=== PATIENT | male | born 1940 | race Caucasian/White ===

== ENCOUNTER 2017-07-03 09:44 | Inpatient (IN) | payer OTHER, BC ==
[2017-05-11 11:45] VITALS: BMI 26.0
--- NOTE | 2017-05-11 12:19 | PAT Medication Instructions ---
Service Date May 11, 2017. Current Home Medication List Aspirin (Aspirin Adult Low Dose), 81 MG PO QAM Atenolol (Atenolol), 50 MG PO QAM Clopidogrel Bisulfate (Plavix), 75 MG PO QAM Gefyjyknyyt-Ffacpjpjerg-Fm Cho (Glucosamine Chondroitin &), 1 TAB PO QAM Hctz/Lisinopril (Lisinopril/Hctz 20/25 Mg), 1 TAB PO QAM Multivitamin (Multivitamin), 1 TAB PO 4XWK Omeprazole (Omeprazole), 20 MG PO BID Simvastatin (Simvastatin), 40 MG PO QAM Medication Instructions For Your Scheduled Surgery - Hold the following medications 2 weeks prior to surgery: Uqbruyimqre-Iwdjinceqna-En Cho (Glucosamine Chondroitin &), 1 TAB PO QAM - Hold the following medications 7 days prior to surgery per surgeon and Cardiology recommendations: Clopidogrel Bisulfate (Plavix), 75 MG PO QAM - Hold the following medications the morning of surgery: Hctz/Lisinopril (Lisinopril/Hctz 20/25 Mg), 1 TAB PO QAM Multivitamin (Multivitamin), 1 TAB PO 4XWK - Take the following medications the morning of surgery with a sip of water OTHERWISE NOTHING EAT OR DRINK AFTER MIDNIGHT: Aspirin (Aspirin Adult Low Dose), 81 MG PO QAM Atenolol (Atenolol), 50 MG PO QAM Omeprazole (Omeprazole), 20 MG PO BID Simvastatin (Simvastatin), 40 MG PO QAM - Take the following medications as scheduled the night before surgery: Omeprazole (Omeprazole), 20 MG PO BID If you have any questions please call us at [phone] or [phone] or [phone]
--- NOTE | 2017-05-11 12:55 | DIAGNOSTIC IMAGING REPORT ---
CHEST PREADMISSION(PA/LAT) HISTORY: 76 years-old Male preadmission exam. COMPARISON: None available TECHNIQUE: PA and lateral views of the chest FINDINGS: Cardiac silhouette is upper limits of normal. There is no pneumothorax or pleural effusion. There is minimal inferior segment lingula atelectasis or scarring and a subsegmental distribution. Hazy opacity of the medial right lung base with obscuration of the right heart border is noted which may reflect prominent epicardial fat pad. The bones appear grossly intact. The abdominal structures are within normal limits. IMPRESSION: 1. Hazy opacity of the medial right lung base with obscuration of the right heart border suggests prominent epicardial fat pad or medial segment right middle lobe airspace disease. 2. Minimal inferior segment lingula atelectasis or scarring. The above report was generated using voice recognition software. It may contain grammatical, syntax or spelling errors. Electronically signed by: Connor De Jesus M.D. 05/11/2017 12:54 PM Dictated Date/Time: 05/11/2017 12:52 PM
[2017-05-11 13:32] LABS: BASO % 0.2 %; BASO ABS # 0.01 K/uL (0-0.2); COMPLETE YES; EOS % 1.5 %; IG% 0.7 %; LYMPH % 20.8 %; LYMPH ABS # 0.95 K/uL (1.2-3.4); MEAN CELL VOLUME 94.4 fL (80-100); MEAN CORPUSCULAR HEMOGLOBIN 32.8 pg (25-34); MEAN CORPUSCULAR HGB CONC 34.8 g/dl (32-36); MEAN PLATELET VOLUME 10.1 fL (7.4-10.4); MONO % 13.8 %; PLATELET COUNT 133 K/uL (130-400); RED BLOOD COUNT 4.45 M/uL (4.7-6.1); WHITE BLOOD COUNT 4.56 K/uL (4.8-10.8)
[2017-05-11 13:39] LABS: BUN/CREATININE RATIO 16.3 (10-20); CALCIUM 9.2 mg/dl (8.5-10.1); CREATININE 0.79 mg/dl (0.60-1.40); POTASSIUM 4.4 mmol/L (3.5-5.1)
[2017-05-11 13:42] LABS: PROTHROMBIN TIME (PATIENT) 11.1 SECONDS (9.0-12.0)
--- NOTE | 2017-06-27 13:45 | HISTORY & PHYSICAL EXAMINATION ---
DATE OF ADMISSION: 07/03/2017 CHIEF COMPLAINT: Left knee pain. HISTORY OF PRESENT ILLNESS: A 76-year-old gentleman who I have been following for several years for advanced left knee pain and DJD. We have treated him conservatively with injections and medicines over time. This has become less successful. He has developed increased pain and discomfort. Pain is mostly on the medial side of his knee. It is increased with weightbearing. He is having more and more difficulty doing recreational activities like playing golf and would like to have his left knee replaced. PAST MEDICAL HISTORY: Past medical history significant for, 1. Coronary artery disease, status post cardiac stent placement back in 2012, on Plavix. 2. Gastroesophageal reflux disease. 3. Hypertension. 4. Mitral regurgitation. 5. Hiatal hernia. PAST SURGICAL HISTORY: Include, 1. Multiple hernia surgery. 2. Hand surgery. 3. Angioplasty in 2012. ALLERGIES: None. CURRENT MEDICINES: 1. Atenolol 50 mg once a day. 2. Aspirin 81 mg. 3. Plavix 75 mg. 4. Glucosamine. 5. Lisinopril/hydrochlorothiazide 20/25 once a day. 6. Omeprazole 20 mg. 7. Simvastatin 40 mg daily. SOCIAL HISTORY: A 76-year-old male. He is . He is from [facility]. He does not smoke. FAMILY HISTORY: Noncontributory. REVIEW OF SYSTEMS: Negative for diabetes. He denies any current chest pain or shortness of breath. He is on Plavix as well as a baby aspirin. No history of DVT or PE. PHYSICAL EXAMINATION: GENERAL: Reveals a pleasant, middle-aged male. He looks to be in good health. HEENT: Benign. NECK: Supple. No lymphadenopathy. LUNGS: Clear to auscultation. HEART: Has a regular rate and rhythm. ABDOMEN: Soft, nontender, and nondistended. EXTREMITIES: Grossly neurovascularly intact except as follows: Examination of the left knee reveals the patient ambulates independently. The patient got a varus alignment to his knee with a bit of varus thrust when he weight bears. He has got a small knee effusion. He has got bony hypertrophy medially. Tender over the medial joint line. Range of motion is 5-120. No instability. X-RAYS: X-rays of the left knee were reviewed. It shows advanced left knee DJD. He has got complete loss of his medial joint space. He has subchondral sclerosis. He has got a little bit of tibial femoral subluxation. With stress testing, his lateral compartment does collapse as well. ASSESSMENT: A 76-year-old male with advanced left knee degenerative joint disease. He has got tricompartment disease. He has failed conservative treatment. He would like to proceed with knee replacement. PLAN: We are going to take him to the operating room and do a left total knee replacement. The risks and benefits of this procedure were explained to the patient, including but not limited to DVT, PE, , infection, neurological injury, vascular injury, bleeding problems, pain, limited range of motion, stiffness, failure to relieve his symptoms, incomplete relief of symptoms, need for further surgery in the future, fracture, leg length inequality, nerve palsy, etc. The patient understands and desires to proceed. Informed consent was obtained. The patient did have his cardiac stent placed in 2012. He was seen by his claim professional and cleared for surgery. He will stop the Plavix 1 week preop. We will continue on the baby aspirin. We did talk to him about taking his atenolol on the morning of surgery. He is hoping to be discharged to home using home health as long as he progresses appropriately in the hospital. TIERNEY
[~2017-07-03] VITALS: Ht 175.3 cm; Wt 82.1 kg
[~2017-07-03 09:44] MED LIST: ACETAMINOPHEN 500 MG TAB PO SCH; ASPI-589 PO; ATROPINE SULFATE 0.1 MG/ML 5ML SYR IV PRN; BUPIVACAINE 0.25% 30 ML VIAL ONE; BUPIVACAINE 0.5 % 5 MG/1 ML PF 10ML VIAL ONE; BUPIVACAINE LIPOSOME 266 MG, BUPIVACAINE/EPINEPHRINE INJ 50 ML, SODIUM CHLORIDE 0.9% PF... INFIL SCH; CEFAZOLIN 2000 MG/60 ML D5W 60 ML IV SCH; CLOP1TAB5 PO; EpHEDrine SULFATE INJ 50 MG/ML AMP IV PRN; FAMOTIDINE 20 MG TAB PO SCH; GABAPENTIN 300 MG CAP PO SCH; GLUCTAB32 PO; LACTATED RINGER'S 1000ML 1,000 ML IV SCH; LACTATED RINGER'S 1000ML 500 ML IV ONE; LACTATED RINGER'S 1000ML IV SCH; LSN/2025 PO; METOCLOPRAMIDE HCL 10 MG TAB PO SCH; MULT-506 PO; OMEP20TA PO; ONDANSETRON INJ 2 MG/ML 2 ML VIAL IV PRN; SCOPOLAMINE 1.5 MG TDSY TD SCH; TNR50 PO; TRANEXAMIC ACID INJ 1,000 MG in SODIUM CHLORIDE 0.9% 100ML 100 ML IV SCH; ZCR40 PO
[2017-07-03 10:10] VITALS: BP 154/69; TEMP 36.4; O2SAT 95; Ht 175.3 cm; Wt 82.1 kg
[2017-07-03] MEDS ORDERED: MIDAZOLAM HCL 1 MG/ML 2ML VIAL ONE ×2 (12:05→13:06)
--- NOTE | 2017-07-03 12:32 | History & Physical Bridge Note ---
H&P Re-Evaluation Bridge Note: I have examined the patient, reviewed the History & Physical and in the interval since the performance of the History & Physical I have noted the following changes of clinical significance: No changes noted
[2017-07-03] MEDS ORDERED: SODIUM CHLORIDE 0.9% PF 50 ML VIAL ONE (12:46)
[2017-07-03] MEDS ORDERED: BUPIVACAINE/EPINEPHRINE 0.25% 1:200,000 30 ML VIAL ONE (12:46)
[2017-07-03] MEDS ORDERED: BUPIVACAINE LIPOSOME 1/3% 266 MG/20 ML VIAL INFIL ONE (12:46)
[2017-07-03] MEDS ORDERED: BACITRACIN 50000 UNIT VIAL ONE (12:46)
--- NOTE | 2017-07-03 14:36 | [facility] Post Operative Brief Note ---
Immediate Operative Summary Operative Date Jul 03, 2017. Pre-Operative Diagnosis Left Knee Advanced Degenerative Joint Disease Post-Operative Diagnosis Left Knee Advanced Degenerative Joint Disease Procedure(s) Performed Left Total Knee Arthroplasty Surgeon Dr. Ag Gifted Program Teacher Surgeon(s) INOCENCIA Suazo Estimated Blood Loss 50 ml Findings Left Knee DJD Fluids (cc crystalloids) 1700 cc Specimens A. Left Knee Bone and Tissue Drains None Anesthesia Spinal Complication(s) None Disposition Recovery Room / PACU
[2017-07-03] MEDS ORDERED: MAGNESIUM HYDROXIDE SUSP 30 ML UDC PO PRN (14:45)
[2017-07-03] MEDS ORDERED: ONDANSETRON INJ 2 MG/ML 2 ML VIAL IV PRN (14:45)
[2017-07-03] MEDS ORDERED: ALUMINUM/MAGNESIUM/SIMETH (MAALOX MAX) 30 ML UDC PO PRN (14:45)
[2017-07-03] MEDS ORDERED: ZOLPIDEM TARTRATE 5 MG TAB PO PRN (14:45)
[2017-07-03] MEDS ORDERED: METOCLOPRAMIDE HCL INJ 5 MG/ML 2 ML VIAL IV PRN (14:45)
[2017-07-03] MEDS ORDERED: HYDROmorphone INJ 0.5 MG/0.5 ML SYR IV PRN (14:45)
[2017-07-03] MEDS ORDERED: TAMSULOSIN HCL 0.4 MG CAP PO PRN (14:45)
[2017-07-03] MEDS ORDERED: BISACODYL 10 MG SUPP PR PRN (14:45)
[2017-07-03] MEDS ORDERED: SILVER SULFADIAZINE 1% CR 50 GM JAR EXT PRN (14:45)
--- NOTE | 2017-07-03 14:55 | Anesthesiology Progress Note ---
Anesthesia Post Op Note Date & Time Jul 03, 2017 at 14:55 Vital Signs Pain Intensity: 0 Vital Signs Past 12 Hours Date Time Temp Pulse Resp B/P (MAP) Pulse Ox O2 Delivery O2 Flow Rate FiO2 07/03/17 14:50 58 14 139/61 97 Oxymask 5 07/03/17 14:40 36.2 62 14 130/62 96 Oxymask 5 07/03/17 10:10 36.4 18 154/69 95 Room Air Notes Mental Status: alert / awake / arousable, participated in evaluation Pt Amnestic to Procedure: Yes Nausea / Vomiting: adequately controlled Pain: adequately controlled Airway Patency, RR, SpO2: stable & adequate BP & HR: stable & adequate Hydration State: stable & adequate Neuraxial Anesthesia: was administered, sensory block is resolving Anesthetic Complications: no major complications apparent
--- NOTE | 2017-07-03 15:14 | DIAGNOSTIC IMAGING REPORT ---
LEFT KNEE 1 OR 2 VIEWS ROUTINE CLINICAL HISTORY: Postoperative evaluation. COMPARISON: Left knee radiographs May 11, 2017. FINDINGS: Alignment of the total left knee arthroplasty is anatomic. There is no fracture or unexpected radiopaque foreign body. There are skin kell. IMPRESSION: Expected findings following total left knee arthroplasty. Electronically signed by: Alessio Chappell M.D. 07/03/2017 3:13 PM Dictated Date/Time: 07/03/2017 3:13 PM
[2017-07-03 15:35] VITALS: BP 116/55; PULSE 54; TEMP 36.5; O2SAT 92
--- NOTE | 2017-07-03 15:54 | OPERATIVE REPORT ---
DATE OF OPERATION: 07/03/2017 SURGEON: Jenaro Ag MD NURSE PRACTITIONER HOSPITALIST: INOCENCIA Braun PREOPERATIVE DIAGNOSIS: Left knee degenerative joint disease. POSTOPERATIVE DIAGNOSIS: Same. PROCEDURE PERFORMED: Left cemented posterior stabilized total knee arthroplasty. COMPLICATIONS: None. ESTIMATED BLOOD LOSS: 50 mL. FLUID REPLACEMENT: 1700 mL crystalloid fluid replacement. TOURNIQUET TIME: 58 minutes at 300 mmHg. ANESTHESIA: Spinal with adductor canal block. DRAINS: None. SPECIMENS: Left knee sent for pathology. OPERATIVE INDICATIONS: The patient is a 76-year-old very active gentleman who has had a long history of left knee pain and discomfort. I have been treating him over the past 5 plus years with injections and medicines. This has become less successful over time. X-rays revealed advanced DJD. The patient elects to proceed with the operative treatment. OPERATIVE FINDINGS: Operative findings revealed advanced grade 4 [id number] atherosclerotic disease of the medial femoral condyle and medial tibial plateau. His patellofemoral joint was fairly well preserved. He did have some spotty grade 4 changes in the lateral compartment as well. He had a varus deformity to his knee with a moderate knee joint effusion. OPERATIVE IMPLANTS: Operative implants consisted of: 1. A Biomet Vanguard size 65 left posterior stabilized femoral component. 2. A Biomet size 75 tibial tray. 3. A 10 mm posterior stabilized polyethylene insert. 4. A 31 x 8 all poly patella. OPERATIVE PROCEDURE: The patient taken to the operating room, identified and placed on the operating table in supine position. All contact areas were appropriately padded. IV antibiotics were provided by anesthesia team. A spinal anesthetic and adductor canal block had been provided in the holding area. Wilcox catheter was placed in sterile fashion. Left thigh tourniquet was then placed and left lower extremity was then prepped and draped in the usual sterile fashion. The left leg was elevated and exsanguinated with Esmarch and tourniquet was placed at 300 mmHg. An anterior approach of the left knee was then performed through a longitudinal incision centered over the patella. Sharp dissection was carried out through the subcutaneous tissues down to the level of the extensor mechanism. A medial parapatellar arthrotomy incision was made. Some subperiosteal dissection was carried out medially. The fat pad was resected from beneath the patellar tendon. The lateral patellofemoral ligament was released. The patella was everted and knee was flexed. The osteophytes were taken off the distal femur. The ACL and PCL were released from the distal femur and the tibia subluxated anteriorly. The external tibial alignment jig was then placed in the anterior face of the tibia and adjusted 16 mm medially. Proximal tibial cut was made to essentially be flushed with the most deficient aspect of the medial tibial plateau. Tibia was sized to a size 75. Some osteophytes were taken off medial and posteromedially. Attention was then drawn to the femur. The distal femur was entered with a sharp drill bit. Intramedullary canal was suctioned. A left 6 degree valgus cutting guide was placed. Distal femoral cutting block was pinned in place. Distal femoral cut was made to take an additional 3 mm of bone off the distal femur. The femur was then sized to a size 65. We did downsize this slightly. The AP cutting block was pinned parallel to the epicondylar axis, which was 5 degrees of external rotation. The anterior cut, anterior chamfer, posterior cut, and posterior chamfer cuts were made. Box cutting guide was placed and adjusted slightly lateral and the box cut was made. The knee was flexed. The remnants of the medial and lateral meniscus were excised. The osteophytes were taken off the posterior aspect of the femur. A trial femoral component was placed. Tibial tray was pinned in maximum external rotation and drill and stem punch were used to create defect in proximal tibia for the tibial tray. The knee was then trialed and the 10 mm insert fit most appropriately. Attention was then drawn to the patella. The patella was cleaned of all soft tissues. Patella thickness measured 23 mm, cut down to 14. It was sized to a size 31 patella. Lateral osteophyte was removed. Patella button was placed. Knee was taken through range of motion and the patella tracked nicely with no thumbs test. Attention was then drawn toward placement of permanent components. All trial components were removed. A bone plug was placed in the distal femur to limit blood loss. A double batch of Palacos G cement was mixed. A left size 65 posterior stabilized femoral component, size 75 tibial tray, a 10 mm posterior stabilized polyethylene insert, and a 31 x 8 all poly patella then cemented in place. Knee was brought out into full extension until cement hardened. A final cement check was then performed. Pericapsular tissues were injected with a total of 100 mL of 20 mL of Exparel, 30 mL of normal saline, and 50 mL of 0.25% Marcaine with epinephrine. The patient did receive 1 gram of tranexamic acid. The tourniquet was then let down for final tourniquet time of 58 minutes. Hemostasis was assured with use of electrocautery. The wound was once again irrigated. The extensor mechanism was closed with a combination of #1 PDS suture and #1 Vicryl suture in a ikjevv-gc-rvqla fashion. The extensor mechanism was checked and found to be intact. The subcutaneous tissues were then closed with 2-0 Dexon suture in a buried interrupted fashion. Skin was closed skin kell. Leg was then cleaned and dried and a sterile dressing of Xeroform, 4 x 4, sterile cast padding and Cristhian bandage were applied. The patient then transferred to the recovery room in stable condition. The patient tolerated the procedure well with no complications. All needle and sponge counts were correct at the end of the operation. I attest to the content of the Intraoperative Record and any orders documented therein. Any exception s are noted below.
[2017-07-03] MEDS: CHECK SCOPOLAMINE PATCH PLACEMENT SCH ×2 (16:00→23:29)
[2017-07-03 16:05] VITALS: BP 132/74; PULSE 57; O2SAT 96
[2017-07-03 16:34] VITALS: BP 126/74; PULSE 62; O2SAT 97
[2017-07-03] MEDS: D5W AND 1/2NSS + 20MEQ KCL 1,000 ML IV SCH (17:10)
[2017-07-03] MEDS: KETOROLAC TROMETHAMINE 15 MG/ML VIAL IV. SCH ×2 (17:16→22:27)
[2017-07-03] MEDS: FERROUS GLUCONATE 324 MG TAB PO SCH (18:16)
[2017-07-03 18:26] VITALS: BP 138/72; PULSE 54; TEMP 36.4; O2SAT 96
[2017-07-03] MEDS: PANTOprazole SOD 40 MG TAB PO SCH (20:39)
[2017-07-03] MEDS: ASPIRIN 81 MG ECTAB PO SCH (20:39)
[2017-07-03] MEDS: SENNA 8.6 MG TAB PO SCH (20:39)
[2017-07-03] MEDS: DOCUSATE SODIUM 100 MG CAP PO SCH (20:39)
[2017-07-03] MEDS: CEFAZOLIN IV 2,000 MG in DEXTROSE 5% 50ML 50 ML IV SCH (20:40)
[2017-07-03] MEDS ORDERED: PANTOprazole SOD 40 MG TAB PO SCH (21:00)
[2017-07-03] MEDS: ACETAMINOPHEN 500 MG TAB PO SCH (22:27)
[2017-07-03 23:40] VITALS: BP 122/68; PULSE 49; TEMP 36.5; O2SAT 94
[2017-07-04] MEDS: D5W AND 1/2NSS + 20MEQ KCL 1,000 ML IV SCH ×2 (01:45→10:54)
[2017-07-04 03:52] VITALS: BP 112/64; PULSE 57; TEMP 36.7; O2SAT 94
[2017-07-04] MEDS: KETOROLAC TROMETHAMINE 15 MG/ML VIAL IV. SCH ×2 (04:07→10:55)
[2017-07-04] MEDS: ACETAMINOPHEN 500 MG TAB PO SCH ×3 (05:51→21:42)
[2017-07-04] MEDS: CEFAZOLIN IV 2,000 MG in DEXTROSE 5% 50ML 50 ML IV SCH (05:51)
[2017-07-04 07:21] VITALS: BP 115/63; PULSE 55; TEMP 36.7; O2SAT 95
[2017-07-04 07:29] LABS: HEMATOCRIT 34.2 % (42-52); MEAN CELL VOLUME 95.5 fL (80-100); MEAN CORPUSCULAR HEMOGLOBIN 33.5 pg (25-34); MEAN CORPUSCULAR HGB CONC 35.1 g/dl (32-36); MEAN PLATELET VOLUME 10.1 fL (7.4-10.4); PLATELET COUNT 107 K/uL (130-400); RED BLOOD COUNT 3.58 M/uL (4.7-6.1); WHITE BLOOD COUNT 6.69 K/uL (4.8-10.8)
[2017-07-04 07:55] LABS: BUN/CREATININE RATIO 17.5 (10-20); CALCIUM 8.1 mg/dl (8.5-10.1); CREATININE 0.73 mg/dl (0.60-1.40)
[2017-07-04] MEDS: CHECK SCOPOLAMINE PATCH PLACEMENT SCH ×3 (08:00→23:29)
[2017-07-04] MEDS ORDERED: MULTIVITAMIN TAB PO SCH (09:00)
[2017-07-04] MEDS ORDERED: PANTOprazole SOD 40 MG TAB PO SCH (09:00)
[2017-07-04 09:10] VITALS: BP 115/58; PULSE 54
[2017-07-04] MEDS: DOCUSATE SODIUM 100 MG CAP PO SCH ×2 (09:11→21:41)
[2017-07-04] MEDS: MULTIVITAMIN TAB PO SCH (09:11)
[2017-07-04] MEDS: PANTOprazole SOD 40 MG TAB PO SCH ×2 (09:11→21:41)
[2017-07-04] MEDS: SIMVASTATIN 40 MG TAB PO SCH (09:12)
[2017-07-04] MEDS: CLOPIDOGREL BISULFATE 75 MG TAB PO SCH (09:13)
[2017-07-04] MEDS: LISINOPRIL/HCTZ 20/25MG TAB PO SCH (09:13)
[2017-07-04] MEDS: ASPIRIN 81 MG ECTAB PO SCH ×2 (09:13→21:40)
[2017-07-04] MEDS: FERROUS GLUCONATE 324 MG TAB PO SCH ×3 (09:14→18:01)
[2017-07-04] MEDS: TRAMADOL HCL 50 MG TAB PO PRN ×3 (09:21→23:28)
--- NOTE | 2017-07-04 14:55 | PROGRESS NOTE ---
DATE: 07/04/2017 SUBJECTIVE: A 76-year-old gentleman postop from a left knee replacement. He is doing well. He says this is going much better than expected. He describes the pain as soreness. No chest pain or shortness of breath. Not feeling dizzy or lightheaded. OBJECTIVE: VITAL SIGNS: Temperature is 36.7. Vital signs stable. GENERAL: Physical examination reveals a healthy pleasant elderly male. He is sitting up in bed and talking to his . He looks comfortable. EXTREMITIES: Examination of the left leg reveals it to be well aligned. He can dorsiflex and plantarflex his foot appropriately. He is neurologically intact. LABORATORY DATA: Hemoglobin 12.0 and hematocrit 34.2. Electrolytes are stable. ASSESSMENT: A 76-year-old male postop day 1 from left knee replacement, doing well. His pain is controlled. He is neurologically intact. PLAN: 1. DVT prophylaxis including thigh-high TEDs and SCDs. We will put him back on his Plavix. He is also on baby aspirin. 2. PT/OT. Weightbear as tolerated. Left total knee protocol. 3. Pain control, doing well with current regimen. 4. Disposition: Plan to discharge to home with some home health once adequately recovered. TIERNEY
[2017-07-04 15:00] VITALS: BP 142/71; PULSE 62; TEMP 36.6; O2SAT 96
[2017-07-04] MEDS ORDERED: ASPEC81 PO (21:24)
[2017-07-04] MEDS ORDERED: ULT50X PO (21:24)
[2017-07-04] MEDS ORDERED: ACET-24 PO (21:24)
--- NOTE | 2017-07-04 21:27 | Discharge Instructions ---
Discharge Instructions Date of Service Jul 04, 2017. Admission Reason for Admission: Left Knee Degenerative Joint Disease Pager Discharge Discharge Diagnosis / Problem: Left Knee Replacement Discharge Goals Goal(s): Decrease discomfort, Improve function, Increase independence, Improve disease control, Therapeutic intervention Activity Recommendations Activity Limitations: per Instructions/Follow-up section Weightbearing Status: Left weightbearing . Instructions / Follow-Up Instructions / Follow-Up ACTIVITY RECOMMENDATIONS: Physical Therapy: * You will go to physical therapy three times each week for four to six weeks after your surgery in order to regain your knee range of motion and to retrain your knee to work properly. * It is just as important to make sure you are getting your knee perfectly straight as it is to regain your knee bend. * Taking a pain pill an hour before therapy can help you have a more productive and comfortable therapy session. Home Exercise: * You were shown a series of exercises (heel props, heel slides, etc.) in the hospital. Do these exercises three to four times each day including the exercises you were shown in physical therapy. Walking: * Get up and walk several times each day. For the first four weeks, try not to stand or walk for more than one hour at a time. If you do stand or walk for more than one hour, you will not hurt anything, but your knee and leg will likely swell. * As you feel comfortable, you may change from the walker or crutches to a cane and then to independent walking. MEDICATIONS: New Medicine: * You will likely be taking one or more of these medications: 1. Tramadol - A quick and shorter-acting pain medication. Take one to two tablets every four to six hours to lessen your pain. * The most common side effects of pain medicine and iron are nausea and constipation. If nausea or constipation is too much of a problem or if you have any questions about your new medicines or doses, call [facility] at . We will try to help you manage these issues. VERY IMPORTANT TO READ AND REVIEW" Pain: * The immediate post-operative period after knee replacement surgery is often quite painful. * You are given a prescription for pain medicine. You should take it, as directed, when you need it, especially before physical therapy and before going to bed. Pain that interferes with sleep is very common and can last several months. * You will likely need pain medicine for the first four to six weeks. It will not stop all of the pain. The pain will lessen and as you feel better, you may change to milder pain medicine such as Tylenol. * The most common side effects of pain medicine are nausea and constipation, so don't take more than you need. SPECIAL CARE INSTRUCTIONS: TEDs/Elastic Stockings: * The white elastic stockings help limit swelling and prevent blood clots from forming in your legs. The more you wear them, the more they work. * Wear them for six weeks after knee replacement surgery and four weeks after partial knee replacement. Prevention of Infection: * Take antibiotics one hour before any dental cleaning, dental work, urological procedure, gastrointestinal procedure or any invasive surgery in order to prevent your new joint from getting infected. * You may get the antibiotics from the doctor performing the procedure or you may call our office at before and we will call in a prescription to the pharmacy of your choice. Things to Watch For: * Drainage from the incision site that occurs more than one week after your surgery. * Severely increased knee/leg pain or swelling. * Increased redness at the incision site. * Fever above 102 degrees Fahrenheit. * Unusual chest pain or shortness of breath. * Unusual pain or burning with urination. Call [facility] at with any of the above problems or if you have any questions about your medicines or recovery. FOLLOW UP VISIT: Make an appointment to see your doctor for approximately two weeks after surgery for a progress check and staple removal by calling the office at . Current Hospital Diet Patient's current hospital diet: Regular Diet Discharge Diet Recommended Diet: Regular Diet Procedures Procedures Performed: Left Total Knee Arthroplasty Pending Studies Studies pending at discharge: no Medical Emergencies . Who to Call and When: Medical Emergencies: If at any time you feel your situation is an emergency, please call [phone] immediately. . Non-Emergent Contact Non-Emergency issues call your: Surgeon . "Provider Documentation" section prepared by Jenaro Ag. . VTE Core Measure Inpt VTE Proph given/why not?: Other Anticoagulation, T.E.D. Stockings, SCD's
[2017-07-04] MEDS: SENNA 8.6 MG TAB PO SCH (21:41)
[2017-07-04 23:15] VITALS: BP 165/75; PULSE 73; TEMP 36.5; O2SAT 93
[2017-07-05] MEDS: ACETAMINOPHEN 500 MG TAB PO SCH (05:30)
[2017-07-05] MEDS: TRAMADOL HCL 50 MG TAB PO PRN ×2 (05:31→11:21)
[2017-07-05 06:40] VITALS: BP 153/74; PULSE 71; TEMP 36.6; O2SAT 95
[2017-07-05 07:31] VITALS: BP 159/78; PULSE 67; TEMP 36.5; O2SAT 93
[2017-07-05] MEDS: CHECK SCOPOLAMINE PATCH PLACEMENT SCH (07:52)
--- NOTE | 2017-07-05 07:52 | PROGRESS NOTE ---
DATE: 07/05/2017 SUBJECTIVE: A 76-year-old gentleman postop day 2 from left knee replacement. Knee is a bit more sore this morning. No chest pain or shortness of breath. Not feeling dizzy or lightheaded. OBJECTIVE: VITAL SIGNS: Temperature 36.5. Vital signs stable. PHYSICAL EXAMINATION: GENERAL: Shows pleasant elderly male. He is sitting up in bed, looks reasonably comfortable. EXTREMITIES: Examination of the left leg reveals the leg to be well aligned. Some moderate swelling. No significant drainage on his dressing. He is neurologically intact. ASSESSMENT: A 76-year-old gentleman postop day 2 from a left knee replacement, doing pretty well. A little bit more sore today. PLAN: 1. DVT prophylaxis including thigh-high TEDs, SCDs, and back on his Plavix and his baby aspirin. 2. PT/OT. Weightbearing as tolerated. Left total knee protocol. 3. Pain control. Doing reasonably well with current pain regimen. We may ask to adjust his meds a little bit. 4. Disposition: Plan to discharge to home with some home health once adequately recovered.
[2017-07-05] MEDS: PANTOprazole SOD 40 MG TAB PO SCH (07:53)
[2017-07-05] MEDS: LISINOPRIL/HCTZ 20/25MG TAB PO SCH (07:53)
[2017-07-05] MEDS: CLOPIDOGREL BISULFATE 75 MG TAB PO SCH (07:54)
[2017-07-05] MEDS: SIMVASTATIN 40 MG TAB PO SCH (07:54)
[2017-07-05] MEDS: FERROUS GLUCONATE 324 MG TAB PO SCH (07:54)
[2017-07-05] MEDS: MULTIVITAMIN TAB PO SCH (07:55)
[2017-07-05 08:22] VITALS: BP 159/78; PULSE 67; TEMP 36.5; O2SAT 93
[2017-07-05] MEDS: DOCUSATE SODIUM 100 MG CAP PO SCH (08:52)
[2017-07-05] MEDS: ASPIRIN 81 MG ECTAB PO SCH (08:52)
--- NOTE | 2017-07-13 18:11 | DISCHARGE SUMMARY ---
ADMITTING PHYSICIAN AND SURGEON: Dr. Ag. ADMITTING DIAGNOSIS: Left knee degenerative joint disease. SURGERY PERFORMED: Left total knee arthroplasty. SECONDARY DIAGNOSES: Coronary artery disease, gastroesophageal reflux disease, hypertension, mitral regurgitation, hiatal hernia. CONSULTS: None obtained. HISTORY AND PHYSICAL EXAMINATION: Well documented in the patient's chart. HOSPITAL COURSE: The patient was admitted on 07/03/2017 and underwent total knee arthroplasty, tolerated the procedure well. There were no complications. Transferred to the PACU postoperatively and later to the orthopedic floor for further care. He was given Ancef for antibiotic prophylaxis, YELENA stockings, SCDs and aspirin and Plavix for DVT prophylaxis. Hemoglobin, hematocrit and vital signs were monitored during his hospital stay and remained stable without requiring any blood transfusions. There were no complications. By postoperative day 2, he was tolerating a general diet, pain was controlled with oral pain medicine. He was participating in physical therapy and had no signs or symptoms of deep vein thrombosis. On postop day 2, he was discharged home, given printed discharge instructions including new prescriptions for extra strength Tylenol, tramadol. Continue his home medicines include aspirin and Plavix, continue physical therapy, weightbearing as tolerated, YELENA stockings. Follow up in 10-12 days or sooner if there are any problems or concerns.
== END 2017-07-05 11:32 | disposition home or self-care (01) | DRG 470 ==
LOC: C.ACU 09:44 → C.3E 12:30 → ENRESERV 15:18
PROVIDERS: ADMIT Orthopaedic Surgery Sports Medicine; ATTEND Orthopaedic Surgery Sports Medicine
PROC: 0SRD0J9 Replacement of Left Knee Joint with Synthetic Substitute, Cemented, Open Approach (ICD-10-PCS; principal; 2017-07-03 12:30)
DX: M17.12 Unilateral primary osteoarthritis, left knee (principal); I25.10 Atherosclerotic heart disease of native coronary artery without angina pectoris; I10 Essential (primary) hypertension; I34.0 Nonrheumatic mitral (valve) insufficiency; K21.9 Gastro-esophageal reflux disease without esophagitis; Z95.5 Presence of coronary angioplasty implant and graft; Z79.02 Long term (current) use of antithrombotics/antiplatelets; Z79.82 Long term (current) use of aspirin; Z79.899 Other long term (current) drug therapy; Z87.19 Personal history of other diseases of the digestive system

== ENCOUNTER 2017-07-08 11:39 | Emergency (ER) | payer OTHER, BC ==
[~2017-07-08] VITALS: Ht 175.3 cm; Wt 83.9 kg
[~2017-07-08 11:39] MED LIST changes: +ACET-24 PO; -ACETAMINOPHEN 500 MG TAB PO SCH; -ATROPINE SULFATE 0.1 MG/ML 5ML SYR IV PRN; -BUPIVACAINE 0.25% 30 ML VIAL ONE; -BUPIVACAINE 0.5 % 5 MG/1 ML PF 10ML VIAL ONE; -BUPIVACAINE LIPOSOME 266 MG, BUPIVACAINE/EPINEPHRINE INJ 50 ML, SODIUM CHLORIDE 0.9% PF... INFIL SCH; -CEFAZOLIN 2000 MG/60 ML D5W 60 ML IV SCH; -EpHEDrine SULFATE INJ 50 MG/ML AMP IV PRN; -FAMOTIDINE 20 MG TAB PO SCH; -GABAPENTIN 300 MG CAP PO SCH; -LACTATED RINGER'S 1000ML 1,000 ML IV SCH; -LACTATED RINGER'S 1000ML 500 ML IV ONE; -LACTATED RINGER'S 1000ML IV SCH; -METOCLOPRAMIDE HCL 10 MG TAB PO SCH; -ONDANSETRON INJ 2 MG/ML 2 ML VIAL IV PRN; -SCOPOLAMINE 1.5 MG TDSY TD SCH; -TRANEXAMIC ACID INJ 1,000 MG in SODIUM CHLORIDE 0.9% 100ML 100 ML IV SCH; +ULT50X PO
[2017-07-08 11:44] VITALS: TEMP 36.4; Ht 175.3 cm; Wt 83.9 kg
--- NOTE | 2017-07-08 11:55 | EMERGENCY ROOM VISIT NOTE ---
History Report prepared by Keya: Kaity Moore Under the Supervision of: Dr. Pavel Barnard D.O. First contact with patient: 11:46 Chief Complaint: REFERRED BY DOCTOR Stated Complaint: GROIN AREA IS RED, HOT AND SWELLING-SENT BY ANDRE History of Present Illness The patient is a 76 year old male who presents to the Emergency Room with complaints of left lower extremity pain and swelling. The patient is 5 days status post left knee replacement with Dr. Ag. He states that his pain is unchanged in his left knee but he's noticed increased redness swelling and pain that goes into his left groin. He called the on-call orthopedic physician to come to the emergency department for further evaluation. The patient is on pain medication and home. He hasn't noticed a fever. He denies having any nausea vomiting or recent trauma. He has had some serosanguineous drainage from the knee but denies having any purulence or dehiscence. Has had some constipation but at this time denies having any abdominal pain chest pain or shortness of breath. The patient does not have a history of DVT or venous thromboembolic disease but otherwise. He currently rates his pain as an 8/10 in severity. Source of History: patient Onset: five days ago Position: knee (left) Symptom Intensity: 8/10 Quality: other (radiating) Timing: constant Associated Symptoms: No fevers, No chest pain, No SOB, No nausea, No vomiting, No abdominal pain Note: The patient complains of constipation and drainage from his knee. The patient denies any recent trauma. Review of Systems See HPI for pertinent positives & negatives. A total of 10 systems reviewed and were otherwise negative. Past Medical & Surgical Medical Problems: (1) CAD (coronary artery disease) (2) DVT (deep venous thrombosis) (3) High cholesterol (4) HTN (hypertension) (5) Left Knee DJD Surgical Problems: (1) H/O hernia repair (2) History of cataract surgery (3) History of heart artery stent (4) History of left knee replacement (5) S/P correction of deviated nasal septum Family History No pertinent family history Social History Smoking Status: Former Smoker Smokeless Tobacco Use: No Alcohol Use: occasionally Drug Use: none Marital Status: Housing Status: lives with significant other Current/Historical Medications Scheduled Acetaminophen (Sb Non-Aspirin Extra Stre), 1,000 MG PO Q8H Aspirin (Aspirin Adult Low Dose), 81 MG PO BID Atenolol (Atenolol), 50 MG PO QAM Cephalexin Monohydrate (Keflex), 500 MG PO QID Clopidogrel Bisulfate (Plavix), 75 MG PO QAM Bmteakkrhgb-Ywlijfuqmiu-Eb Cho (Glucosamine Chondroitin &), 1 TAB PO QAM Hctz/Lisinopril (Lisinopril/Hctz 20/25 Mg), 1 TAB PO QAM Multivitamin (Multivitamin), 1 TAB PO 4XWK Omeprazole (Omeprazole), 20 MG PO BID Polyethylene Glycol 3350 (Miralax), 17 GM PO DAILY Simvastatin (Simvastatin), 40 MG PO QAM Scheduled PRN Tramadol HCl (Tramadol HCl), 50-100 MG PO Q6H PRN for Pain Allergies Coded Allergies: NO KNOWN DRUG ALLERGIES (Verified Allergy, Unknown, , 07/03/17) Oxycodone (Verified Adverse Reaction, Mild, G.I. UPSET, 07/08/17) Physical Exam Vital Signs Date Time Temp Pulse Resp B/P (MAP) Pulse Ox O2 Delivery O2 Flow Rate FiO2 07/08/17 16:14 73 18 138/69 95 Room Air 07/08/17 15:00 71 20 147/70 96 Room Air 07/08/17 13:35 67 07/08/17 13:04 68 18 139/65 98 Room Air 07/08/17 11:44 36.4 67 18 122/65 100 Room Air Physical Exam GENERAL: Patient is awake alert in no acute distress patient is resting comfortably and showing no signs of anxiety EYES: The conjunctivae are clear. The pupils are round and reactive. EARS, NOSE, MOUTH AND THROAT: The nose is without any evidence of any deformity. Mucous membranes are moist tongue is midline NECK: The neck is nontender and supple. RESPIRATORY: Normal respiratory effort is noted there is no evidence of wheezing rhonchi or rales CARDIOVASCULAR: Regular rate and rhythm noted there no murmurs rubs or gallops normal S1 normal S2 GASTROINTESTINAL: The abdomen is soft. Bowel sounds are present in all quadrants. Abdomen is nontender BACK: No midline tenderness or or step-off noted range of motion in flexion extension as well as rotation no signs of muscle spasm noted MUSCULOSKELETAL/EXTREMITIES: There is no evidence of gross deformity full range of motion is noted in the hips and shoulders SKIN: There is a postoperative site noted in the left knee. Skin kell are in place. There is significant erythema and warmth but there is no dehiscence or drainage. There is also swelling and tenderness tracks up the inner left thigh. It is indurated. It is warm. Skin is warm and dry. NEUROLOGIC: Patient is awake alert and oriented x3. Medical Decision & Procedures ER Provider Diagnostic Interpretation: Radiology results as stated below per my review and radiologist interpretation: L KNEE 1 OR 2 VIEWS ROUTINE CLINICAL HISTORY: left knee pain pain COMPARISON: 07/03/2017 DISCUSSION: Anatomic alignment status post total left knee replacement. Good contact between prosthetic and underlying bone. Moderate pretibial soft tissue edema IMPRESSION: 1. Operative changes consistent with a total left knee replacement. 2. Mild soft tissue edema The above report was generated using voice recognition software. It may contain grammatical, syntax or spelling errors. Electronically signed by: Ajay Villarreal M.D. 07/08/2017 12:52 PM Dictated Date/Time: 07/08/2017 12:51 PM L VENOUS DOPP LOWER EXT UNILAT CLINICAL HISTORY: swelling pain. Edema. TECHNIQUE: Venous Doppler COMPARISON STUDY: None FINDINGS: Negative study IMPRESSION: Negative study The above report was generated using voice recognition software. It may contain grammatical, syntax or spelling errors. Electronically signed by: Ajay Villarreal M.D. 07/08/2017 1:29 PM Dictated Date/Time: 07/08/2017 1:29 PM L LOWER EXTREMITY WITHOUT CT DOSE: 424.52 mGy.cm HISTORY: Pain. Edema. LLE swelling TECHNIQUE: Multiaxial CT images of the left thigh and femur were performed and reformatted in the sagittal and coronal plane without the use of contrast. A dose lowering technique was utilized adhering to the principles of ALARA. COMPARISON: None. FINDINGS: Findings of a total knee replacement. Considerable soft tissue cellulitis throughout the bulk of the length of the thigh. Very small thin areas of fluid accumulation in the medial upper left thigh as well as lateral thigh are present within the subcutaneous fat. Nevertheless, a well-defined drainable abscess or collection is not appreciated. Major muscle bundles appear unremarkable. There is a very small joint effusion. IMPRESSION: 1. Generalized soft tissue subcutaneous edema/ cellulitis. 2. Several very small thin layers of fluid are present within the subcutaneous fat, although there is no evidence for drainable abscess or collection. 3. Postoperative changes consistent with a left knee arthroplasty. The above report was generated using voice recognition software. It may contain grammatical, syntax or spelling errors. Electronically signed by: Ajay Villarreal M.D. 07/08/2017 2:35 PM Dictated Date/Time: 07/08/2017 2:29 PM Laboratory Results 07/08/17 12:30 Red Blood Count 2.95, Mean Corpuscular Volume 93.6, Mean Corpuscular Hemoglobin 33.6, Mean Corpuscular Hemoglobin Concent 35.9, Mean Platelet Volume 9.7, Neutrophils (%) (Auto) 65.3, Lymphocytes (%) (Auto) 14.0, Monocytes (%) (Auto) 18.1, Eosinophils (%) (Auto) 1.7, Basophils (%) (Auto) 0.2, Neutrophils # (Auto ) 3.54, Lymphocytes # (Auto) 0.76, Monocytes # (Auto) 0.98, Eosinophils # (Auto ) 0.09, Basophils # (Auto) 0.01 07/08/17 12:30 Test 07/08/17 12:30 07/08/17 12:39 07/08/17 12:57 White Blood Count 5.42 K/uL (4.8-10.8) Red Blood Count 2.95 M/uL (4.7-6.1) Hemoglobin 9.9 g/dL (14.0-18.0) Hematocrit 27.6 % (42-52) Mean Corpuscular Volume 93.6 fL (80-100) Mean Corpuscular Hemoglobin 33.6 pg (25-34) Mean Corpuscular Hemoglobin Concent 35.9 g/dl (32-36) Platelet Count 176 K/uL (130-400) Mean Platelet Volume 9.7 fL (7.4-10.4) Neutrophils (%) (Auto) 65.3 % Lymphocytes (%) (Auto) 14.0 % Monocytes (%) (Auto) 18.1 % Eosinophils (%) (Auto) 1.7 % Basophils (%) (Auto) 0.2 % Neutrophils # (Auto) 3.54 K/uL (1.4-6.5) Lymphocytes # (Auto) 0.76 K/uL (1.2-3.4) Monocytes # (Auto) 0.98 K/uL (0.11-0.59) Eosinophils # (Auto) 0.09 K/uL (0-0.5) Basophils # (Auto) 0.01 K/uL (0-0.2) RDW Standard Deviation 41.3 fL (36.4-46.3) RDW Coefficient of Variation 12.1 % (11.5-14.5) Immature Granulocyte % (Auto) 0.7 % Immature Granulocyte # (Auto) 0.04 K/uL (0.00-0.02) Erythrocyte Sedimentation Rate 24 mm/hr (0-14) Prothrombin Time 10.5 SECONDS (9.0-12.0) Prothromb Time International Ratio 1.0 (0.9-1.1) Activated Partial Thromboplast Time 28.5 SECONDS (21.0-31.0) Partial Thromboplastin Ratio 1.1 Anion Gap 6.0 mmol/L (3-11) Est Creatinine Clear Calc Drug Dose 86.1 ml/min Estimated GFR () 104.4 Estimated GFR (Non- 90.1 BUN/Creatinine Ratio 17.7 (10-20) Calcium Level 8.4 mg/dl (8.5-10.1) Total Bilirubin 1.1 mg/dl (0.2-1) Direct Bilirubin 0.4 mg/dl (0-0.2) Aspartate Amino Transf (AST/SGOT) 23 U/L (15-37) Alanine Aminotransferase (ALT/SGPT) 25 U/L (12-78) Alkaline Phosphatase 67 U/L (45-117) C-Reactive Protein 16.00 mg/dl (0-0.29) Total Protein 6.3 gm/dl (6.4-8.2) Albumin 2.9 gm/dl (3.4-5.0) Bedside Lactic Acid Venous 1.10 mmol/L (0.90-1.70) Urine Color YELLOW Urine Appearance CLEAR (CLEAR) Urine pH 6.5 (4.5-7.5) Urine Specific [place] 1.009 (1.000-1.030) Urine Protein NEG (NEG) Urine Glucose (UA) NEG (NEG) Urine Ketones NEG (NEG) Urine Occult Blood NEG (NEG) Urine Nitrite NEG (NEG) Urine Bilirubin NEG (NEG) Urine Urobilinogen NEG (NEG) Urine Leukocyte Esterase NEG (NEG) Laboratory results per my review. Medications Administered Medications (Trade) Dose Ordered Sig/Abelino Route Start Time Stop Time Status Last Admin Dose Admin Potassium Chloride (Kcl 10 Meq / Wtr) 10 meq NOW STAT IV 07/08/17 13:24 07/08/17 13:25 DC 07/08/17 13:37 10 MEQ Potassium Chloride (Klor-Con M10) 10 meq NOW STAT PO 07/08/17 13:24 07/08/17 13:25 DC 07/08/17 13:38 10 MEQ Ceftriaxone Sodium (Rocephin Inj) 1 gm NOW STAT IV 07/08/17 14:59 07/08/17 15:01 DC 07/08/17 14:59 1 GM ED Course 1146: The patient was evaluated in room C11B. A complete history and physical examination were performed. 1324: Ordered Potassium Chloride 10 meq PO, Potassium Chloride 10 meq IV. 1333: I reevaluated the patient and he was resting comfortably. 1357: I discussed the patient's case with Dr. Mccormack. He will come see the patient and asked he be put in for a CT. 1459: Ordered Rocephin Inj 1 gm IV. 1606: Upon reevaluation, the patient is resting comfortably. I discussed the results and treatment plan with him. He verbalized agreement of the treatment plan. The patient was discharged home. Medical Decision Prior records reviewed and summarized as above. Triage Nursing notes reviewed. The patient's history was concerning for swelling and redness of the skin. Differential diagnosis: Etiologies such as cellulitis, abscess, MRSA infection, DVT, necrotizing fasciitis, dermatitis, drug eruption, as well as others were entertained.. The patient is a 76-year-old male who presented to the emergency department for an evaluation of left leg pain. The patient had recent knee surgery with a knee replacement. The patient's skin appears erythematous and warm. At this time I feel some of his condition could be related to being on Plavix and his recent surgery. There appears to be significant swelling in the tissue which could be consistent with a hematoma in the subcutaneous tissues. I discussed the patient' s laboratory radiographic studies with him. His potassium was replaced. I also discussed his case with the covering orthopedic physician. He has agreed to evaluate the patient in the emergency apartment for further management and disposition. After discussing the case he requested that we order a CAT scan of the leg. This appeared to show significant infiltration of the soft tissues but appears to be more consistent with hematoma but no drainable abscess. Since cellulitis could still be on the differential the patient was started on antibiotics in the emergency department. He was reevaluated multiple times. He was encouraged to follow-up with his primary orthopedic physician as soon as possible. He was also encouraged to continue all medications as prescribed. He is also encouraged to return to the emergency Department immediately if symptoms change worsen or the need arises. Medication Reconcilliation Current Medication List: was personally reviewed by me Blood Pressure Screening Patient's blood pressure: Elevated blood pressure Blood pressure disposition: Elevated BP felt to be situational Consults Time Called: [id number] Consulting Physician: Dr. Mccormack Returned Call: [phone] I discussed the patient's case with Dr. Mccormack. He will come see the patient and asked he be put in for a CT. Impression Primary Impression: Pain of left lower extremity Additional Impressions: Postoperative pain Postoperative hematoma Hypokalemia Scribe Attestation The scribe's documentation has been prepared under my direction and personally reviewed by me in its entirety. I confirm that the note above accurately reflects all work, treatment, procedures, and medical decision making performed by me. Departure Information Dispostion Home / Self-Care Prescriptions Cephalexin Monohydrate (KEFLEX) 500 Mg Cap 500 MG PO QID, #40 CAP Prov: Pavel Barnard, DO 07/08/17 Referrals Karen Irene,P.A. (PCP) Forms HOME CARE DOCUMENTATION FORM, IMPORTANT VISIT INFORMATION, WORK / SCHOOL INSTRUCTIONS Patient Instructions [facility] Additional Instructions Continue all medications as prescribed. Follow-up with Dr. Ag as scheduled. Return to the emergency department immediately if symptoms change worsen or if the need arises. Problem Qualifiers
[2017-07-08] MEDS ORDERED: POLY335019 PO (12:21)
[2017-07-08 12:47] LABS: BASO % 0.2 %; BASO ABS # 0.01 K/uL (0-0.2); COMPLETE YES; EOS % 1.7 %; HEMATOCRIT 27.6 % (42-52); IG% 0.7 %; LYMPH ABS # 0.76 K/uL (1.2-3.4); MEAN CELL VOLUME 93.6 fL (80-100); MEAN CORPUSCULAR HEMOGLOBIN 33.6 pg (25-34); MEAN CORPUSCULAR HGB CONC 35.9 g/dl (32-36); MEAN PLATELET VOLUME 9.7 fL (7.4-10.4); MONO % 18.1 %; NEUT % 65.3 %; PLATELET COUNT 176 K/uL (130-400); RED BLOOD COUNT 2.95 M/uL (4.7-6.1); WHITE BLOOD COUNT 5.42 K/uL (4.8-10.8)
--- NOTE | 2017-07-08 12:53 | DIAGNOSTIC IMAGING REPORT ---
L KNEE 1 OR 2 VIEWS ROUTINE CLINICAL HISTORY: left knee pain pain COMPARISON: 07/03/2017 DISCUSSION: Anatomic alignment status post total left knee replacement. Good contact between prosthetic and underlying bone. Moderate pretibial soft tissue edema IMPRESSION: 1. Operative changes consistent with a total left knee replacement. 2. Mild soft tissue edema The above report was generated using voice recognition software. It may contain grammatical, syntax or spelling errors. Electronically signed by: Ajay Villarreal M.D. 07/08/2017 12:52 PM Dictated Date/Time: 07/08/2017 12:51 PM
[2017-07-08 12:58] LABS: PARTIAL THROMBOPLASTIN RATIO 1.1; PROTHROMBIN TIME (PATIENT) 10.5 SECONDS (9.0-12.0)
[2017-07-08 13:07] LABS: BUN/CREATININE RATIO 17.7 (10-20); CALCIUM 8.4 mg/dl (8.5-10.1); CREATININE 0.73 mg/dl (0.60-1.40); POTASSIUM 2.9 mmol/L (3.5-5.1)
[2017-07-08 13:08] LABS: URINE APPEARANCE CLEAR (CLEAR); URINE BILIRUBIN NEG (NEG); URINE COLOR YELLOW; URINE NITRITE NEG (NEG); URINE PH 6.5 (4.5-7.5); URINE SPECIFIC GRAVITY 1.009 (1.000-1.030); UROBILINOGEN NEG (NEG)
[2017-07-08 13:15] LABS: MANUAL MICROSCOPIC REQUIRED? NO; REVIEW REQ? NO
[2017-07-08] MEDS ORDERED: POTASSIUM CHLORIDE 10 MEQ / 100ML WTR IV STA (13:24)
[2017-07-08] MEDS ORDERED: POTASSIUM CHLORIDE 10 MEQ TABCR PO STA (13:24)
--- NOTE | 2017-07-08 13:30 | DIAGNOSTIC IMAGING REPORT ---
L VENOUS DOPP LOWER EXT UNILAT CLINICAL HISTORY: swelling pain. Edema. TECHNIQUE: Venous Doppler COMPARISON STUDY: None FINDINGS: Negative study IMPRESSION: Negative study The above report was generated using voice recognition software. It may contain grammatical, syntax or spelling errors. Electronically signed by: Ajay Villarreal M.D. 07/08/2017 1:29 PM Dictated Date/Time: 07/08/2017 1:29 PM
--- NOTE | 2017-07-08 14:36 | DIAGNOSTIC IMAGING REPORT ---
L LOWER EXTREMITY WITHOUT CT DOSE: 424.52 mGy.cm HISTORY: Pain. Edema. LLE swelling TECHNIQUE: Multiaxial CT images of the left thigh and femur were performed and reformatted in the sagittal and coronal plane without the use of contrast. A dose lowering technique was utilized adhering to the principles of ALARA. COMPARISON: None. FINDINGS: Findings of a total knee replacement. Considerable soft tissue cellulitis throughout the bulk of the length of the thigh. Very small thin areas of fluid accumulation in the medial upper left thigh as well as lateral thigh are present within the subcutaneous fat. Nevertheless, a well-defined drainable abscess or collection is not appreciated. Major muscle bundles appear unremarkable. There is a very small joint effusion. IMPRESSION: 1. Generalized soft tissue subcutaneous edema/ cellulitis. 2. Several very small thin layers of fluid are present within the subcutaneous fat, although there is no evidence for drainable abscess or collection. 3. Postoperative changes consistent with a left knee arthroplasty. The above report was generated using voice recognition software. It may contain grammatical, syntax or spelling errors. Electronically signed by: Ajay Villarreal M.D. 07/08/2017 2:35 PM Dictated Date/Time: 07/08/2017 2:29 PM
[2017-07-08] MEDS ORDERED: CEFTRIAXONE SOD INJ 1 GM ADDVIAL IV STA (14:59)
--- NOTE | 2017-07-08 15:12 | Orthopedic Consultation ---
Orthopedic Consultation Date of Consultation: Jul 08, 2017. Attending Physician: Reason for Consultation: Left groin redness History of Present Illness 76-year-old male status post left total knee arthroplasty by Dr. Ag on Sunday of this week. He is on Plavix for a stent that was placed in 2002. His electrical contacts adjuster Dr. Verito archuleta in [place] told him he needs to be on Plavix for life. He stopped his Plavix 7 days before surgery and then restarted at the day after surgery as he was instructed. He started noticing some redness in his groin yesterday that progressed into today. His called and I instructed them to come in to the emergency room. On presentation the emergency room the patient's afebrile temperature 36.4. A Doppler ultrasound was done which ruled out a DVT. We got a CAT scan that showed no drainable fluid collections. Labs were drawn including a UA which was negative. His CRP was elevated at 16 and ESR was elevated at 24 but his white count was negative. He is not having any pain in the groin. No subjective fevers or chills. He is taking only one tramadol a day for pain. This pain is only at the site of his surgery. Denies numbness or tingling. Past Medical/Surgical History Significant for coronary artery disease status post stent placement on Plavix for life. Family History No pertinent family history Social History Smoking Status: Former Smoker Smokeless Tobacco Use: No Drug Use: none Marital Status: Housing Status: lives with significant other Allergies Coded Allergies: NO KNOWN DRUG ALLERGIES (Verified Allergy, Unknown, , 07/03/17) Oxycodone (Verified Adverse Reaction, Mild, G.I. UPSET, 07/08/17) Home Medications Scheduled Acetaminophen (Sb Non-Aspirin Extra Stre), 1,000 MG PO Q8H Aspirin (Aspirin Adult Low Dose), 81 MG PO BID Atenolol (Atenolol), 50 MG PO QAM Clopidogrel Bisulfate (Plavix), 75 MG PO QAM Eyicrldwlxx-Xhxbuhypazz-Kg Cho (Glucosamine Chondroitin &), 1 TAB PO QAM Hctz/Lisinopril (Lisinopril/Hctz 20/25 Mg), 1 TAB PO QAM Multivitamin (Multivitamin), 1 TAB PO 4XWK Omeprazole (Omeprazole), 20 MG PO BID Polyethylene Glycol 3350 (Miralax), 17 GM PO DAILY Simvastatin (Simvastatin), 40 MG PO QAM Scheduled PRN Tramadol HCl (Tramadol HCl), 50-100 MG PO Q6H PRN for Pain Physical Exam Date Time Temp Pulse Resp B/P (MAP) Pulse Ox O2 Delivery O2 Flow Rate FiO2 07/08/17 13:35 67 07/08/17 13:04 68 18 139/65 98 Room Air 07/08/17 11:44 36.4 67 18 122/65 100 Room Air General Appearance: no apparent distress Head: normocephalic, atraumatic Neck: supple Respiratory/Chest: no respiratory distress Cardiovascular: normal peripheral pulses Extremities/Musculoskelatal: + inflammation (examination of the left lower extremity reveals his midline total knee incision to be healing well. There is scant drainage on the AVD pad which is serous in nature. He has some blanchable erythema on his medial thigh extending up into his groin. There is some petechiae near his groin which are likely secondary to the tourniquet.), + swelling Neurologic/Psych: alert, normal mood/affect, oriented x 3 Laboratory Results Last 24 Hours Test 07/08/17 12:30 07/08/17 12:39 07/08/17 12:57 White Blood Count 5.42 K/uL Red Blood Count 2.95 M/uL Hemoglobin 9.9 g/dL Hematocrit 27.6 % Mean Corpuscular Volume 93.6 fL Mean Corpuscular Hemoglobin 33.6 pg Mean Corpuscular Hemoglobin Concent 35.9 g/dl Platelet Count 176 K/uL Mean Platelet Volume 9.7 fL Neutrophils (%) (Auto) 65.3 % Lymphocytes (%) (Auto) 14.0 % Monocytes (%) (Auto) 18.1 % Eosinophils (%) (Auto) 1.7 % Basophils (%) (Auto) 0.2 % Neutrophils # (Auto) 3.54 K/uL Lymphocytes # (Auto) 0.76 K/uL Monocytes # (Auto) 0.98 K/uL Eosinophils # (Auto) 0.09 K/uL Basophils # (Auto) 0.01 K/uL RDW Standard Deviation 41.3 fL RDW Coefficient of Variation 12.1 % Immature Granulocyte % (Auto) 0.7 % Immature Granulocyte # (Auto) 0.04 K/uL Erythrocyte Sedimentation Rate 24 mm/hr Prothrombin Time 10.5 SECONDS Prothromb Time International Ratio 1.0 Activated Partial Thromboplast Time 28.5 SECONDS Partial Thromboplastin Ratio 1.1 Sodium Level 135 mmol/L Potassium Level 2.9 mmol/L Chloride Level 97 mmol/L Carbon Dioxide Level 32 mmol/L Anion Gap 6.0 mmol/L Blood Urea Nitrogen 13 mg/dl Creatinine 0.73 mg/dl Est Creatinine Clear Calc Drug Dose 86.1 ml/min Estimated GFR () 104.4 Estimated GFR (Non- 90.1 BUN/Creatinine Ratio 17.7 Random Glucose 136 mg/dl Calcium Level 8.4 mg/dl Total Bilirubin 1.1 mg/dl Direct Bilirubin 0.4 mg/dl Aspartate Amino Transf (AST/SGOT) 23 U/L Alanine Aminotransferase (ALT/SGPT) 25 U/L Alkaline Phosphatase 67 U/L C-Reactive Protein 16.00 mg/dl Total Protein 6.3 gm/dl Albumin 2.9 gm/dl Bedside Lactic Acid Venous 1.10 mmol/L Urine Color YELLOW Urine Appearance CLEAR Urine pH 6.5 Urine Specific [place] 1.009 Urine Protein NEG Urine Glucose (UA) NEG Urine Ketones NEG Urine Occult Blood NEG Urine Nitrite NEG Urine Bilirubin NEG Urine Urobilinogen NEG Urine Leukocyte Esterase NEG Assessment & Plan Assessment and plan: 74-year-old male with mild drainage from his wound likely secondary to Plavix. No evidence of infection. His ESR and CRP are likely elevated due to postsurgical change. Groin redness is likely secondary to tourniquet trauma. However cellulitis is not completely ruled out. Therefore we will put him on Keflex 500 mg 4 times a day. He is also getting a dose of Rocephin here IV in the emergency room. We put a new dressing on his wound. He 'll contact follow-up with Dr. Ag's office this week. Additional Copies To Jenaro Ag M.D.
[2017-07-08] MEDS ORDERED: CEPH500C2 PO (15:17)
[2017-07-08 16:14] VITALS: BP 138/69; PULSE 73; O2SAT 95
== END 2017-07-08 16:23 | disposition home or self-care (01) ==
LOC: C.EDB 11:40 → C.EDC 16:23
DX: M96.840 Postprocedural hematoma of a musculoskeletal structure following a musculoskeletal system procedure (principal); E87.6 Hypokalemia; Z86.718 Personal history of other venous thrombosis and embolism; I25.10 Atherosclerotic heart disease of native coronary artery without angina pectoris; E78.00 Pure hypercholesterolemia, unspecified; I10 Essential (primary) hypertension; Z98.49 Cataract extraction status, unspecified eye; Z95.5 Presence of coronary angioplasty implant and graft; Z96.652 Presence of left artificial knee joint; Z87.891 Personal history of nicotine dependence; Z79.82 Long term (current) use of aspirin; Z79.899 Other long term (current) drug therapy; Z79.01 Long term (current) use of anticoagulants

== ENCOUNTER 2022-12-06 06:01 | Observation (INO) ==
--- NOTE | 2022-11-21 11:05 | PAT Medication Instructions ---
Medication Instructions Date of Service November 21, 2022 Home Medications aspirin 81 mg capsule 81 mg PO QAM atenolol 50 mg tablet 50 mg PO QAM lisinopril 20 mg-hydrochlorothiazide 25 mg tablet 1 tab PO BID multivitamin 1 tab PO 4XWK omeprazole 20 mg capsule,delayed release 20 mg PO BID simvastatin 40 mg tablet 40 mg PO QAM DO NOT take the morning of surgery lisinopril 20 mg-hydrochlorothiazide 25 mg tablet 1 tab PO BID multivitamin 1 tab PO 4XWK Take morning of surgery With a small sip of water, OTHERWISE NOTHING TO EAT OR DRINK AFTER MIDNIGHT: aspirin 81 mg capsule 81 mg PO QAM (continue as normal unless told otherwise by surgeon) atenolol 50 mg tablet 50 mg PO QAM omeprazole 20 mg capsule,delayed release 20 mg PO BID simvastatin 40 mg tablet 40 mg PO QAM Take evening before surgery lisinopril 20 mg-hydrochlorothiazide 25 mg tablet 1 tab PO BID omeprazole 20 mg capsule,delayed release 20 mg PO BID Other Notes If you have any questions please call us at [phone] or [phone] or [phone] or [phone]
--- NOTE | 2022-11-23 15:06 | Anesthesiology Consultation ---
Date of Service November 23, 2022 Assessment & Plan (1) Encounter for pre-operative examination: Chart Review Chart Review: Acceptable Risk for Surgery and Patient seen in Pre Admission Testing Pt is NOT an Outpatient Joint Candidate - Check BSG AM DOS Per PAT appt on 11/23/22, patient denies any recent travel or large group activities. Pt is vaccinated for Covid. Will leave to surgeon's discretion if preop Covid testing needed. Educated on importance of using Covid precautions one week prior to surgery Pt seen by cardio 10/11/22= patient seen for follow-up evaluation for cardiovascular issues. Today patient feels well and offers no cardiac complaints. Patient is due for knee replacement in the near future. Able to ambulate long distances with no cardiac symptoms. Overall patient doing well from cardiovascular standpoint. From a preoperative risk standpoint he is at an elevated but acceptable risk. No unstable symptoms at this time and can easily achieve 4 metabolic equivalents or greater without any limitations from a cardiac standpoint. Thereforecardio feels that he may proceed at elevated but acceptable risk from a cardiovascular standpoint. Additionallywe will continue his aspirin throughout his perioperative course. Patient will follow-up in 1 year History Surgery Operation Date: 12/06/22 09:55 Proposed Procedures p Right Total Knee Arthroplasty - Jenaro Ag MD Height/Weight Height: 5 ft 8.5 in Weight: 79.5 kg Allergies Allergy/AdvReac Type Severity Reaction Status Date / Time No Known Drug Allergies Allergy Unknown Verified 11/20/22 08:51 oxycodone AdvReac Mild G.I. UPSET Verified 11/20/22 08:51 Medications Home Medications Medication Instructions Recorded Confirmed Last Taken aspirin 81 mg capsule 81 mg PO QAM 11/20/22 11/20/22 Unknown atenolol 50 mg tablet 50 mg PO QAM 11/20/22 11/20/22 Unknown lisinopril 20 1 tab PO BID 11/20/22 11/20/22 Unknown mg-hydrochlorothiazide 25 mg tablet multivitamin 1 tab PO 4XWK 11/20/22 11/20/22 Unknown omeprazole 20 mg capsule,delayed 20 mg PO BID 11/20/22 11/20/22 Unknown release simvastatin 40 mg tablet 40 mg PO QAM 11/20/22 11/20/22 Unknown Past Medical History Medical History Borderline diabetes Monitoring Diet controlled CAD (coronary artery disease) S/p LEE to LAD in 2002 DVT (deep venous thrombosis) Pt denies GERD (gastroesophageal reflux disease) Well controlled and stable High cholesterol HTN (hypertension) Hx of diverticulitis of colon Treated with abx- Jun 2022 Osteoarthritis Sleep apnea no machine Exercise / Class Metabolic Activity II 4-5 Yardwork/Stairs/Walk up hill (one flight of stairs - no chest pain or SOB) Past Family History Family History Other No family history of adverse response to anesthesia Past Surgical History Surgical History H/O hernia repair left (x1) & right (x4) inguinal hernia repairs History of cardiac cath x1 in 2002 at [facility] History of cataract surgery bilateral History of cholecystectomy History of colonoscopy History of esophagogastroduodenoscopy (EGD) History of heart artery stent x1 in 2002. History of left knee replacement S/P correction of deviated nasal septum Past Anesthesia History No Hx of Anesthesia Complications and No Family Hx of Anesthesia Complications History of PONV No Hx of PONV and No Hx of Motion Sickness Social History Smoking Status: Former smoker tobacco type: cigarettes Do You Dip or Chew Tobacco: No Smoking End Date: Hx Alcohol Use: Yes Alcohol type: wine alcohol intake frequency: a few times a week Hx Substance Use: No substance use type: does not use Review of Systems Patient denies chest pain, shortness of breath, dyspnea on exertion, cough, wheezing, palpitations. No hx of seizures, stroke, MT. No hx of blood clots or blood transfusions Physical Exam Vital Signs VITALS BP 118/72 P 58 TEMP 97.5 SP02 97% RESP 16 Constitutional no acute distress ENMT Mouth: no TMJ clicking Thyromental Distance: > or= 3.5 Finger Breadths (3.5) Mallampati Class: II Caps to front teeth Neck neck extension not limited Respiratory normal respiratory effort; no respiratory distress Auscultation: lungs clear to auscultation bilaterally; no wheezes Cardiovascular Rate/Rhythm: regular rate and regular rhythm Heart Sounds: no murmur Vessels: no carotid bruit Musculoskeletal Spine: no pain with cervical ROM Extremities: extremities normal to inspection Psychiatric Orientation: alert Lab Results Anesthesia Preop Results Results Anesthesia Widget: WBC 5.53 K/ul (4.8-10.8) 11/23/22 Hgb 14.7 g/dl (14.0-18.0) 11/23/22 Hct 40.0 % (42.0-52.0) L 11/23/22 Plt 182 K/uL (130-400) 11/23/22 Na 134 mmol/L (136-145) L 11/23/22 K 4.2 mmol/L (3.5-5.1) 11/23/22 Cl 97 mmol/L (98-107) L 11/23/22 CO2 33 mmol/L (21-32) H 11/23/22 BUN 14 mg/dl (6-23) 11/23/22 Creat 0.68 mg/dl (0.6-1.4) 11/23/22 Glucose Level 148 mg/dl (70-99(Fasting)) H 11/23/22 PT 11.4 Seconds (9.0-12.0) 11/23/22 PTT 27.6 Seconds (21.0-31.0) 11/23/22 INR 1.1 (0.9-1.1) 11/23/22 HA1c 5.9 % (4.5-5.6) H 11/23/22 Blood Type O Positive 11/23/22 Antibody Screen NEGATIVE 11/23/22 Testing Electrocardiogram Date: 06/23/22 Findings: + SB @ (53bpm ) Right bundle branch block Nonspecific ST and T wave abnormality Chest X-Ray Date: 11/23/22 Findings: + NAD FINDINGS: No pneumothorax. No pleural effusions. Hazy appearance to lung bases, right greater than the left remains unchanged. This favors prominent mediastinal fat. Otherwise, no new focal lung consolidations to suggest a pneumonia. No evidence for pulmonary edema. The heart is normal in size. A coronary artery stent is noted. IMPRESSION: No significant change compared to the prior study. No acute process. Echocardiogram Date: 04/27/20 EF: 55-60% LV Function: normal RWMA: + none Other Findings: + diastolic dysfunction (Grade 1); no LVH Mild MR. When compared to prior report 05/28/2018LV systolic function remains preserved. Degree of MR appears to be mild. Mild to moderate MR has been previously reported COVID-19 Risk Screen Screening Information COVID-19 Screen Date: 11/23/22 Exposure 21 Days Family/Household +COVID Last 21 Days: No Exposure 10 Days Any COVID Exposure Last 10 Days: No Symptoms Last 10 Days Experienced COVID Sx Last 10 Days: No + COVID 0-90 Days COVID + in Last 0-90 Days: No Risk Plan COVID Risk Plan: No Risk Identified Patient Education COVID Preop Screening Education Complete: Yes
[~2022-12-06 06:01] MED LIST changes: -ACET-24 PO; +ACETAMINOPHEN 500 MG TAB PO SCH; -ASPI-589 PO; +BUPIVACAINE LIPOSOME/PF 266 MG, BUPIVACAINE/EPINEPHRINE 50 ML, SODIUM CHLORIDE 0.9% 30 ... INFIL SCH; -CLOP1TAB5 PO; +CeleBREX 200 MG CAP PO SCH; +FAMOTIDINE 20 MG TAB PO SCH; -GLUCTAB32 PO; +LR 500ML BOLUS, THEN 15ML/HR IV SCH; +LR 60ML/HR IV SCH; -LSN/2025 PO; +METOCLOPRAMIDE HCL 10 MG TABLET PO SCH; -MULT-506 PO; -OMEP20TA PO; -TNR50 PO; +TRANEXAMIC ACID 1,000 MG **IV Intra-op IV SCH; -ULT50X PO; -ZCR40 PO; +ceFAZolin 2000MG 2,000 MG/15 ML SYR IV SCH
[2022-12-06] MEDS ORDERED: BUPIVACAINE 0.5 % 5 MG/1 ML PF 10ML VIAL ONE (06:29)
[2022-12-06] MEDS ORDERED: ROPIVACAINE 0.5% 5 MG/ML 30 ML VIAL ONE (06:29)
--- NOTE | 2022-12-06 06:57 | History & Physical Bridge Note ---
Date of Service December 06, 2022 History & Physical Bridge Note I have examined the patient, reviewed the History & Physical and in the interval since the performance of the History & Physical I have noted the following changes of clinical significance: no changes noted
[2022-12-06] MEDS ORDERED: MIDAZOLAM HCL 1 MG/ML 2ML VIAL ONE (08:00)
[2022-12-06] MEDS ORDERED: PROPOFOL IV EMULSION 10 MG/ML 20 ML VIAL IV ONE (08:02)
[2022-12-06] MEDS ORDERED: LIDOCAINE 2% MPF LOCAL 5 ML VIAL INFIL ONE (08:02)
[2022-12-06] MEDS ORDERED: ePHEDrine sulfate 50 MG/ML AMP IV PRN (08:19)
[2022-12-06] MEDS ORDERED: ATROPINE SULFATE 0.1 MG/ML 10ML SYR IV PRN (08:19)
[2022-12-06] MEDS ORDERED: fentaNYL citrate 100 MCG/2 ML VIAL IV PRN (08:19)
[2022-12-06] MEDS ORDERED: ONDANSETRON INJ 2 MG/ML 2 ML VIAL IV PRN ×2 (08:19→11:59)
[2022-12-06] MEDS ORDERED: BUPIVACAINE LIPOSOME 1.3% 266 MG/20 ML VIAL ONE (08:49)
[2022-12-06] MEDS ORDERED: SODIUM CHLORIDE 0.9% PF 50 ML VIAL ONE (08:50)
[2022-12-06] MEDS ORDERED: BUPIVACAINE/EPINEPHRINE 0.25% 1:200,000 30 ML VIAL ONE (08:50)
[2022-12-06] MEDS ORDERED: DEXAMETHASONE SOD INJ 4 MG/ML VIAL ONE (09:19)
[2022-12-06] MEDS ORDERED: KETOROLAC 30 MG/ML VIAL ONE (10:15)
--- NOTE | 2022-12-06 10:50 | Operative Report ---
PG Post Operative Report Pre & Post Diagnosis Operation Date: 12/06/22 08:50 Pre-Op Diagnosis: Right Knee Degenerative Joint Disease Post-Op Diagnosis: Right Knee Degenerative Joint Disease I identified the patient and participated in the time-out.: Yes Procedure Operation Date: 12/06/22 08:50 Actual Procedures p Right Total Knee Arthroplasty(Right) - Jenaro Ag MD Surgeon Jenaro Ag MD Commercial Illustrator Anjum Will PA-C Estimated Blood Loss 50 Findings Consistent with Post-Op Diagnosis Operative findings were advanced right knee DJD. Extensive grade 4 [id number] disease in the anteromedial compartment. He had some focal grade 4 changes lateral femoral condyle and the patellofemoral joint. Moderate-sized joint effusion. Specimens Right knee sent for pathology Anesthesia Type Spinal MAC Complications none Indications Patient is an 82-year-old fairly active gentleman has had a long history of knee problems. He did have his left knee replaced several years ago and is done well from this. He said developed progressive increasing right knee pain discomfort. He has been through extensive conservative treatment and this became less effective. It started affect his quality life and elected proceed with total knee arthroplasty. Description of Procedure Operative implants consist of: 1. Biomet Vanguard size 65 right posterior stabilized femoral component. 2. Biomet size 75 tibial tray. 3. 12 mm posterior stabilized polyethylene insert. 4. 31 x 8 all poly patella. The patient was taken to the operating, identified, and placed on the operating table supine position but all contact areas were appropriately padded. IV antibiotics tried by anesthesia team. A spinal anesthetic and abductor canal block had been provided in the holding area. A Wilcox catheter was placed in sterile fashion. Right factor was then placed in the right lower extremities then prepped and draped in usual sterile fashion. The right leg was elevated exsanguinated with use of an Esmarch and the tourniquet was placed at 300 mmHg. An anterior approach of the right knee was then performed through a longitudinal incision centered over the patella. Sharp dissection was carried through subcutaneous tissues down the extensor mechanism. A medial parapatellar arthrotomy incision was made. Some subperiosteal dissection was carried out medially. The fat pad was dissected from Neath pa tella tendon. Lateral patellofemoral ligament was released. Patella was subluxated laterally and the knee was flexed. The osteophytes taken off distal femur. ACL and PCL were then released from distal femur the tibia subluxated anteriorly. The external tibial alignment jig was then placed the interface the tibia and adjusted 14 mm medially. Proximal tibial cut was made remove about a millimeter bone at most from most deficient aspect medial tibial plateau. Some osteophytes taken off medial and posterior medially. The tibia sized to a size 75. Attention drawn the femur. The distal femur examined the sharp drill. Intramedullary canal was suction. A right 6 degree valgus cutting guide was placed. Distal femoral cutting block was pinned in place. Distal femoral cut was made to take an additional 3 mm of bone off distal femur. The femur was then sized to a size 65. The AP cutting block was pinned parallel to the epicondylar axis which was 3 degrees of external rotation. Anterior cut, anterior chamfer, posterior cut, posterior chamfer cuts were made. The box cutting guide was placed in the just slight lateral and the box cut was made. The knee was flexed. The remnants of the medial and lateral menisci were excised. The osteophytes taken off the posterior aspect the femur. Trial femoral component was placed through the tibial tray was pinned in maximum external rotation and the drill and stem punch were used to create defect in the proximal tibia for the tibial tray. The knee was then trialed and the 12 mm insert fit most appropriately. Attention drawn the patella. The patella is cleaned of all soft tissues. Patella thickness measured 23 mm in thickness and was cut down to 14. Was sized to a size 31 patella. The lug holes were drilled for the 31 patella. The lateral osteophyte was removed. Patella button was placed. Knee was taken through range of motion patella tracked nicely with no thumbs test. Attention drawn to placing permanent components. Nupathe all trial components were removed. Bone plug was placed in the distal femur limit blood loss. Double batch Palacos G cement was mixed. A Biomet Vanguard size 65 right posterior stabilized femoral component, size 75 tibial tray, a 12 mm posterior stabilized polyethylene insert, and a 31 x 8 all Paller patella then cemented in place. New spreadout into full extension till cement hardened. Final cement check was then performed. Pericapsular tissues were injected with total 100 cc of combination of 20 cc of Exparel, 30 cc normal saline, 50 cc of quarter percent Marcaine with epinephrine. Patient did receive 1 g tranexamic acid for final tourniquet time 51 minutes. Hemostasis assured with electrocautery. Extensor mechanism then closed with combination 1 PDS suture #1 Vicryl suture. Extensor mechanism checked and found to be intact. The subcutaneous tissue was then closed with 2 Dexon suture in buried interrupted fashion skin was closed skin kell. Legs then cleaned and dried. Sterile dressing composed of Xeroform, 4 fours, sterile cast padding, Cristhian bandage were applied. Patient then transferred to the recovery room in stable condition. Patient tolerated procedure well no complications. Anjum Will, my physician graduate research assistant, was present for the entire procedure. His assistance was essential and required for appropriate patient positioning, prepping and draping, surgical exposure, performing the technical details of the operation, placement the implants, closure of the wound, and placement of the sterile bandage. I attest to the content of the Intraoperative Record and any orders documented therein. Any exceptions are noted below.
--- NOTE | 2022-12-06 11:18 | XRay Report ---
XR knee RT 1 or 2V routine CLINICAL HISTORY: Surgical Post Op TECHNIQUE: 2 views of the right knee were obtained. Comparison: Comparison is made to knee radiograph 11/23/2022 FINDINGS: Patient is status post total knee arthroplasty with expected postsurgical changes including soft tiss ue swelling and subcutaneous emphysema. No periarticular lucency or hardware fracture is seen. IMPRESSION: Expected postoperative appearance status post placement of total knee arthroplasty. ACT 112: Negative or not required by law. Electronically signed by: Miko Norwood M.D. 12/06/2022 11:16 AM
--- NOTE | 2022-12-06 11:21 | Anesthesiology Progress Note ---
Date of Service December 06, 2022 Anesthesia Post Procedure Vital Signs Vital Signs: Temp Pulse Pulse Resp BP Pulse Ox O2 Del Method 12/06/22 11:15 97.7 F 58 L 18 128/62 92 Room Air 12/06/22 11:05 56 L 15 111/57 L 94 Room Air 12/06/22 10:55 55 L 13 127/60 99 Oxymask 12/06/22 10:49 97.5 F L 58 L 15 110/54 L 97 Oxymask 12/06/22 06:32 97.9 F 55 L 20 126/62 98 Room Air O2 Flow Rate 12/06/22 11:15 12/06/22 11:05 12/06/22 10:55 5 12/06/22 10:49 5 12/06/22 06:32 Transfer of Care Handoff Completed per policy Notes Mental Status: alert / awake / arousable and participated in evaluation Patient Amnestic to Procedure: Yes Nausea / Vomiting: adequately controlled Pain: adequately controlled Airway Patency, RR, SpO2: stable & adequate BP & HR: stable & adequate Hydration State: stable & adequate Neuraxial Anesthesia: was administered and sensory block is resolving Anesthetic Complications: no major complications apparent and Pt Satisfied with anesthetic care
[2022-12-06] MEDS ORDERED: METOCLOPRAMIDE HCL INJ 5 MG/ML 2 ML VIAL IV PRN (11:59)
[2022-12-06] MEDS ORDERED: bisacodyL 10 MG SUPP PR PRN (11:59)
[2022-12-06] MEDS ORDERED: ALUMINUM/MAGNESIUM SUSP 30 ML UDC PO PRN (11:59)
[2022-12-06] MEDS ORDERED: NON-FORMULARY MEDICATION (Multivitamin Tablet) PO SCH (11:59)
[2022-12-06] MEDS ORDERED: MAGNESIUM HYDROXIDE SUSP 30 ML UDC PO PRN (11:59)
[2022-12-06] MEDS ORDERED: PHARMACY GLYCEMIC MGMT CONSULT PRN (11:59)
[2022-12-06] MEDS ORDERED: NALOXONE HCL 0.4 MG/1 ML VIAL/CARP IV PRN (11:59)
[2022-12-06] MEDS ORDERED: HYDROmorphone INJ 0.5 MG/0.5 ML SYR IV PRN (11:59)
[2022-12-06] MEDS ORDERED: CARBOHYDRATES FOR HYPOGLYCEMIA PO PRN (11:59)
[2022-12-06] MEDS ORDERED: GLUCOSE 10 TAB/TUBE PO PRN (11:59)
[2022-12-06] MEDS ORDERED: GLUCAGON FOR INJ 1 MG VIAL SQ PRN (11:59)
[2022-12-06] MEDS ORDERED: GLUCOSE 40% GEL 15 GM TUBE PO PRN (11:59)
[2022-12-06] MEDS ORDERED: DEXTROSE 50% 50 ML SYRINGE IV PRN (11:59)
--- NOTE | 2022-12-06 12:39 | Pharmacy Report ---
Pharmacy Glycemic Short Note 2 - Date of Service December 06, 2022 - Glycemic Short BSG Results (Last 24 hours): 12/06/22 06:25 POC Glucose 122 H OUTPATIENT ANTIDIABETIC REGIMEN: * none * A1c 5.9% 11/23/22 ASSESSMENT: * 82 year old male, s/p right TKA, diet controlled DM, A1c at goal. Patient did received Dexamethasone 10mg IV intraoperatively, and will receive 10mg tomorrow IV. * Start with NovoLog + Lantus at this time, BSG currently 164mg/dl. Adjust to goal BSG. PLAN FOR INPATIENT GLYCEMIC CONTROL: * Basal insulin * 10 units now, then 10 units HS for BSG > 180mg/dl * Bolus insulin * NovoLog per scale ACHS or Q6hrs while NPO * Goal Range: Low 110 mg/dL - High 140 mg/dL * Correction Factor: 30 mg/dL/unit * Nutritional / Prandial insulin per carb ratio of 1 unit per 10 grams CHO consumed
[2022-12-06] MEDS ORDERED: LANTUS PER UNIT CHARGE SQ ONE (12:45)
[2022-12-06] MEDS: INSULIN ASPART PER UNIT SC SCH ×3 (12:58→22:45)
[2022-12-06] MEDS: SODIUM CHLORIDE 0.9% 1000ML 1,000 ML IV SCH ×2 (13:04→23:25)
[2022-12-06] MEDS: ACETAMINOPHEN 500 MG TAB PO SCH ×2 (13:04→22:51)
[2022-12-06] MEDS: KETOROLAC TROMETHAMINE 15 MG/ML VIAL IV SCH ×2 (13:05→18:10)
[2022-12-06] MEDS ORDERED: TRANEXAMIC ACID / 0.7% NACL 1,000 MG/100 ML BAG IV SCH (16:45)
[2022-12-06] MEDS: ceFAZolin 1000MG 1,000 MG/7.5 ML SYR IV SCH (17:45)
[2022-12-06] MEDS ORDERED: SENNA 8.6 MG TAB PO SCH (21:00)
[2022-12-06] MEDS ORDERED: LANTUS PER UNIT CHARGE SQ SCH (21:00)
[2022-12-06] MEDS: DOCUSATE SODIUM/SENNA 50/8.6MG TAB PO SCH (22:47)
[2022-12-06] MEDS: DOCUSATE SODIUM 100 MG CAP PO SCH (22:47)
[2022-12-06] MEDS: ASPIRIN 81 MG ECTAB PO SCH (22:48)
[2022-12-06] MEDS: LISINOPRIL/HCTZ 20/25MG 1 TAB PO SCH (22:48)
[2022-12-06] MEDS: PANTOprazole 40 MG TAB PO SCH (22:50)
[2022-12-07] MEDS: KETOROLAC TROMETHAMINE 15 MG/ML VIAL IV SCH ×2 (01:19→06:22)
[2022-12-07] MEDS: ceFAZolin 1000MG 1,000 MG/7.5 ML SYR IV SCH (01:20)
[2022-12-07] MEDS: ACETAMINOPHEN 500 MG TAB PO SCH (05:28)
[2022-12-07] MEDS: oxyCODONE HCL IR 5 MG TAB (IMMEDIATE RELEASE) PO PRN ×2 (05:36→11:32)
[2022-12-07 08:01] LABS: Hematocrit (blood only) 30.4 % (42.0-52.0); Hemoglobin 11.3 g/dl (14.0-18.0); Mean Corpuscular Hgb Conc 37.2 g/dL (32.0-36.0); Mean Corpuscular Volume 91.6 fL (80.0-100.0); Mean Platelet Volume 10.4 fL (9.4-12.4); Platelet Count 142 K/uL (130-400); RDW Coefficient of Variation 11.2 % (11.5-14.5); RDW Standard Deviation 38.1 fL (36.4-46.3); Red Blood Count 3.32 M/uL (4.70-6.10); White Blood Count 11.74 K/ul (4.8-10.8)
[2022-12-07 08:32] LABS: Calcium 8.4 mg/dl (8.5-10.1); Creatinine Clr Calc Pharmacy 82.4 ml/min; Est GFR (African American) 103.1 ml/min; Est GFR (Non-African American) 88.9 ml/min; Potassium 3.4 mmol/L (3.5-5.1)
[2022-12-07] MEDS: LISINOPRIL/HCTZ 20/25MG 1 TAB PO SCH (08:48)
[2022-12-07] MEDS: DOCUSATE SODIUM 100 MG CAP PO SCH (08:48)
[2022-12-07] MEDS: DOCUSATE SODIUM/SENNA 50/8.6MG TAB PO SCH (08:48)
[2022-12-07] MEDS: PANTOprazole 40 MG TAB PO SCH (08:48)
[2022-12-07] MEDS: INSULIN ASPART PER UNIT SC SCH (08:50)
[2022-12-07] MEDS ORDERED: LANTUS PER UNIT CHARGE SQ ONE ×2 (09:00→12:00)
[2022-12-07] MEDS ORDERED: TAMSULOSIN HCL 0.4 MG CAP PO SCH (09:00)
[2022-12-07] MEDS ORDERED: SIMVASTATIN 40 MG TAB PO SCH (09:00)
[2022-12-07] MEDS ORDERED: ATENOLOL 50 MG TABLET PO SCH (09:00)
[2022-12-07] MEDS ORDERED: MULTIVITAMIN TAB PO SCH (09:00)
[2022-12-07] MEDS: ASPIRIN 81 MG ECTAB PO SCH (09:18)
[2022-12-07] MEDS ORDERED: dexAMETHasone 10 MG in SYRINGE 0 ML IV SCH (12:00)
--- NOTE | 2022-12-12 13:20 | Discharge Summary ---
Date of Service December 12, 2022 Discharge Data Procedures Performed Operation Date: 12/06/22 08:50 Actual Procedures p Right Total Knee Arthroplasty(Right) - Jenaro Ag MD Hospital Course (1) Status post total right knee replacement: This is a 82 year old patient admitted on 12/06/22 and underwent total knee arthroplasty. He tolerated the procedure well and there were no complications. Transferred to the PACU post op and later to the orthopedic floor for further care. He was given ancef for antibiotic prophylaxis. He was also given YELENA stockings, SCDs, and aspirin for DVT prophylaxis. Hemoglobin, hematocrit, and vital signs were monitored during his hospital stay and remained stable. Did not require any blood transfusions. There were no complications during his hospital stay. By post op day #1 the patient was tolerating a diabetic diet, pain was reasonably controlled with oral pain medicine, and he was participating in physical therapy. On post op day #1 the patient was discharged home and set up with home health care. He was given printed discharge instructions including prescriptions for extra strength tylenol, aspirin, ketorolac, zofran, senokot, flomax, and oxycodone. Continue physical therapy, weight bearing as tolerated. Continue YELENA stockings. Follow up approximately 2 weeks post op or sooner if there are problems or concerns. Coding Level of Care Code None Diagnoses Status post total right knee replacement Z96.651
== END 2022-12-07 11:38 | disposition home health service (06) ==
LOC: 3E 06:01 → ASU 06:01
DX: Z88.5 Allergy status to narcotic agent; M17.11 Unilateral primary osteoarthritis, right knee; Z79.82 Long term (current) use of aspirin; Z79.899 Other long term (current) drug therapy; Z96.652 Presence of left artificial knee joint; Z95.5 Presence of coronary angioplasty implant and graft; Z87.891 Personal history of nicotine dependence; Z20.822 Contact with and (suspected) exposure to COVID-19